=== PATIENT | male | born 1965 | race Caucasian/White ===

== ENCOUNTER 2023-10-28 08:20 | Day surgery (SDC) | payer OTHER, SELFPAY ==
--- NOTE | 2023-10-17 10:34 | HPS.HSE ---
Family Physician
-
Family Physician: NO INTERVIEW UNKNOWN
Chief Complaint
-
Atrial flutter.
History of Present Illness
The patient is a 58 year old male presenting today for atrial flutter. The patient reports a history of heart racing, especially worse at night, secondary to this diagnosis. He previously underwent a cardioversion in August 2023 for his
arrhythmia. Thankfully, since his cardioversion, his heart racing has dissipated and he has been remaining in normal sinus rhythm. He is on pharmacological therapy with Metoprolol Succinate. He has been compliant with Xarelto for oral
anticoagulation. He will undergo an atrial flutter ablation for further arrhythmia management. He denies any current complaints today such as chest pain, shortness of breath at rest, nausea, vomiting, diarrhea, lightheadedness, dizziness, cough,
sore throat, or fever.
Medical History
Past Medical History
Past Medical History: Reports Other
Additional Past Medical History:
1. Atrial flutter, status post cardioversion; pharmacological therapy with Metoprolol Succinate, oral anticoagulation with Xarelto.
2. Hyperlipidemia.
3. Coronary artery disease, status post CABG x3 2003.
4. First degree AV block.
5. Obstructive sleep apnea, no current device.
6. Chronic kidney disease stage 3.
7. Non-insulin dependent diabetes with neuropathy.
8. Remote GERD.
9. Chronic nausea.
10. Nephrolithiasis.
11. Rare migraines.
12. Vertigo.
13. Peroneal nerve paralysis with ambulatory dysfunction.
14. Lumbar herniated discs.
15. Osteoarthritis.
16. Probable BPH.
17. Anxiety.
18. Depression.
19. Obesity, BMI 30.8.
20. Remote tobacco abuse.
21. Cannibis dependence.
Past Surgical History: Reports Other
Additional Past Surgical History:
1. Cardioversion.
2. CABG x3.
3. [place] teeth extraction.
4. Colonoscopy x2.
Social History
Tobacco: Former Smoker (He is a former 1-2 pack per day cigarette smoker who quit tobacco altogether in 1991. )
Alcohol: Other (Rare. )
Drug: Marijuana (Daily for pain. )
Personal:
Living: Other (He lives with his in a single family home. )
Family History
Family History: Not pertinent
Allergies / Home Medications
Allergy/Medication List:
Home medications:
1. Acetaminophen 1000 mg p.o. every 6 hours as needed.
2. Alprazolam 0.5 mg p.o. 1-2 times a day.
3. Atorvastatin 80 mg p.o. daily.
4. Bupropion HCl 150 mg p.o. twice a day.
5. Fenofibrate 145 mg p.o. at bedtime.
6. Flaxseed 1000 mg p.o. every evening.
7. Glimepiride 4 mg p.o. twice a day.
8. Marijuana 1-2 units p.o. daily as needed.
9. Metformin 1000 mg p.o. twice a day.
10. Metoprolol Succinate 25 mg p.o. daily.
11. Naproxen sodium 440 mg p.o. daily as needed.
12. Fish oil 1000 mg p.o. daily.
13. Pioglitazone 15 mg p.o. every evening.
14. Xarelto 20 mg p.o. every evening.
15. Jardiance 25 mg p.o. daily.
Allergies: Darvocet and Darvon. [place] Peanuts.
Review of Systems
-
A 12 point ROS was completed and negative except as noted: Yes
Physical Exam
Vital Signs
Blood pressure 101/57. Heart rate 59. Respirations 18. Pulse ox 97% on room air.
Height 5 feet, 6 inches. Weight 86.6 kg. BMI 30.8.
Physical Exam
General: Well Developed, Well Nourished and No Apparent Distress
HEENT: NormoCephalic, Moist mucous membranes, Atraumatic and PERRLA
Respiratory: Clear
Cardiac: Regular Rhythm
GI: Soft, Non Tender and Non Distended
Musculoskeletal: Other (Braces noted on bilateral lower extremities. Patient walks unassisted with ataxic gait. )
Skin: Warm and Dry
Neuro: AO x 3 and Nonfocal/grossly intact
Laboratory Results
-
DIAGNOSTIC STUDIES as of 10/17/2023: White blood cell count 5.8. Hemoglobin 13.1. Platelet count 289,000. PT 16.3. INR 1.30. Sodium 136. Potassium 4.6. BUN 33. Creatinine 1.6. Glucose 123. Calcium 10.4. Magnesium 2.2. AST 32. ALT 26. Albumin 4.9.
Blood type O positive.
EKG 10/17/2023: Sinus bradycardia with first degree AV block. Nonspecific T wave abnormality.
Impression/Plan
-
IMPRESSION/PLAN:
1. Atrial flutter: The patient is in need of an atrial flutter ablation with Dr. Ryan Jackson on 10/28/2023. The benefits and risks of the procedure have been explained to the patient. The patient understands these risks and wishes to proceed.
He will continue his home Xarelto up until the night prior to his ablation unless he is otherwise specified by his surgeon. He will hold all of his medications the morning of his procedure.
[2023-10-17 13:36] VITALS: BMI 30.8
[2023-10-17 14:15] LABS: % Eosinophils 1.4 % (0-6); % Immature Granulocytes 0.3 % (0-0.5); % Lymphocytes 25.9 % (20.5-51.1); % Monocytes 7.1 % (1.7-9.3); % Neutrophils 64.3 % (42.2-75.2); Absolute Basophils 0.1 10^3/uL (0-0.2); Absolute Eosinophils 0.1 10^3/uL (0-0.7); Absolute Lymphocytes 1.5 10^3/uL (1.2-3.4); Absolute Monocytes 0.4 10^3/uL (0.1-0.6); Absolute Neutrophils 3.7 10^3/uL (1.4-6.5); Hematocrit 39.3 % (39.0-52.0); Hemoglobin 13.1 g/dL (13.0-18.0); Mean Corp Hgb Conc. 33.3 g/dL (33.0-37.0); Mean Corpuscular Hgb 29.5 pg (27.0-31.0); Mean Corpuscular Volume 88.5 fL (80.0-94.0); Mean Platelet Volume 10.6 fL (7.4-10.4); Nucleated Red Blood Cells % 0 % (-); Platelet Count 289 10^3/uL (130-400); Red Blood Cell Count 4.44 10^6/uL (4.70-6.10); Red Cell Dist. Width 15.3 % (11.5-14.5); White Blood Cell Count 5.8 10^3/uL (4.8-10.8)
[2023-10-17 14:28] LABS: PT 16.3 Sec (11.4-14.6)
[2023-10-17 15:09] LABS: ALT (SGPT) 26 U/L (0-50); AST (SGOT) 32 U/L (17-59); Albumin 4.9 g/dl (3.5-5.0); Alkaline Phosphatase 60 U/L (38-126); Blood Urea Nitrogen 33 mg/dl (9-20); Calcium 10.4 mg/dl (8.4-10.2); Carbon Dioxide 25 mmol/L (22-30); Chloride 103 mmol/L (98-107); Estimated Creatinine Clearance 51 ml/min; Glucose 123 mg/dl (70-99); Magnesium 2.2 mg/dl (1.6-2.3); Potassium 4.6 mmol/L (3.5-5.1); Sodium 136 mmol/L (135-145); Total Bilirubin 0.4 mg/dl (0.2-1.3); Total Protein 7.1 g/dl (6.3-8.2); eGFR 49.02
[2023-10-28] VITALS (17 sets, daily range): BP systolic 112–169; BP diastolic 69–100; BMI 28.9
--- NOTE | 2023-10-28 12:52 | ITS.CL.ABL ---
Type Caster - Ablation
Ablation
Procedure Report:
ELECTROPHYSIOLOGIC STUDY AND POSSIBLE ABLATION
Date of Procedure: October 28, 2023
Primary Care Provider: Dr. Morteza Banks
Primary ore dryer: Dr. Jorgito Herring
INDICATION:
1. Atrial tachyarrhythmia, symptomatic
HISTORY:
Please refer to office history and physical exam.
He has a history of coronary artery disease with prior coronary artery bypass grafting surgery in 2003. He is diabetic.
He was recently diagnosed with atrial flutter prompting the initiation of oral anticoagulation as well as rate control with Toprol. It is noted that a recent echocardiogram shows low normal LVEF with no significant valvular disease.
My review of EKG dated August 22, 2023 finds atrial flutter (appears to be typical counterclockwise right atrial flutter) with mildly rapid rate, ventricular rate of 101 bpm.
He underwent cardioversion and feels he has been maintaining sinus rhythm since that time.
He notes that with atrial flutter he felt uncomfortable heart racing sensation and pounding particularly at night.
PROCEDURE:
Ultrasound Guidance performed by me was utilized for femoral venous Vascular Access b/l. Vascular US demonstrated the typical vascular anatomy.
A decapolar mapping catheter was placed into the CS for LA mapping/recording but could only be advanced into the very proximal coronary sinus and will not remain there so the decapolar catheter was then moved to the interatrial septum. A mapping
catheter was positioned and a 3-D mapping system ([employer]) was used to create three-dimensional electroanatomical map of the right atrium and the cavotricuspid isthmus.. Mapping and ablation catheter was positioned and RV recordings were obtained and
RV pacing was performed. Programmed electrical stimulation including burst atrial pacing and delivery of atrial decremental extrastimuli failed to induce any sustained arrhythmias. Of note programmed electrical stimulation demonstrates the
presence of dual AV shahid physiology but no inducible supraventricular tachycardia based on this mechanism. Sustained atrial arrhythmia could not be induced and CTI ablation was performed based on CTI flutter being the most likely diagnosis.
After determination of a target arrhythmia, a deflectable tip mapping/ablation catheter (4 mm tip irrigated contact sensing) was advanced to the inferior aspect of the tricuspid annulus (isthmus of atrial tissue between the annulus and inferior vena
caval orifice). RF was used to try to interrupt a critical portion of the flutter circuit. RF applications were given from the 5 to 7 o'clock positions along the tricuspid annulus during [ ] sinus rhythm / atrial flutter / while pacing from the
lateral medial right atrium. The catheter was initially placed on the ventricular aspect of the annulus, where energy delivery was begun. A series of discrete applications were made along a line between the annulus and inferior vena caval orifice.
At the conclusion of RF delivery, pacing from both the lateral as well as medial aspect of the tricuspid annulus revealed a discontinuity in the wavefront of atrial activation along the tricuspid annulus-IVC isthmus; sites medial to 6 o'clock were
activated from the medial aspect, and those lateral to 6 o'clock were activated from the lateral aspect. This suggests that the flutter circuit utilizing this isthmus as a critical portion of its propagation had been interrupted.
COMPLICATIONS: None
SUMMARY:
Empiric ablation of the cavotricuspid isthmus due to noninducibility of the clinical arrhythmia. Inability to induce the clinical arrhythmia raises some doubt regarding ultimate effectiveness of today's ablation.
- EP study with coronary sinus catheter
- 3-dimensional electroanatomical mapping ([employer])
- Mapping and ablation of supraventricular tachycardia
RECOMMENDATIONS:
Continue oral anticoagulation
CHADSVASc = 3 (Age, DM, Vasc Dz). If there will be consideration for discontinuation of oral anticoagulation would be safest to have an implanted loop recorder to assess for any recurrent atrial tachyarrhythmias
Copy to: Dr Jorgito Herring
--- NOTE | 2023-10-28 17:05 | W.PN.UPDATE ---
Update Note
Progress Note Update
Pt seen post Aflutter ablation. Right groin with FOE, no ht/bleeding, non tender. OOB ambulating, urinating without difficulty. Post EKG NSR 70s, inc RBBB as before, no acute changes. Resume Xarelto tonight at usual time. Followup with Dr. Herring
as scheduled. Home today if groin site/tele remain stable.
== END 2023-10-28 16:53 | disposition home or self-care (01) ==
LOC: CATH 08:20
PROVIDERS: ATTENDING PHYSICIAN Internal Medicine Cardiovascular Disease; FAMILY PHYSICIAN Internal Medicine; OTHER PHYSICIAN Internal Medicine Cardiovascular Disease
DX: I48.92 Unspecified atrial flutter (principal); E11.22 Type 2 diabetes mellitus with diabetic chronic kidney disease; E11.40 Type 2 diabetes mellitus with diabetic neuropathy, unspecified; E78.5 Hyperlipidemia, unspecified; E66.9 Obesity, unspecified; F32.A Depression, unspecified; F41.9 Anxiety disorder, unspecified; G47.33 Obstructive sleep apnea (adult) (pediatric); I25.10 Atherosclerotic heart disease of native coronary artery without angina pectoris; I45.10 Unspecified right bundle-branch block; I47.19 Other supraventricular tachycardia; I48.91 Unspecified atrial fibrillation; Z95.1 Presence of aortocoronary bypass graft; I44.0 Atrioventricular block, first degree; K21.9 Gastro-esophageal reflux disease without esophagitis; Z87.442 Personal history of urinary calculi; G43.909 Migraine, unspecified, not intractable, without status migrainosus; R42 Dizziness and giddiness; G57.30 Lesion of lateral popliteal nerve, unspecified lower limb; M19.90 Unspecified osteoarthritis, unspecified site; M51.26 Other intervertebral disc displacement, lumbar region; Z87.891 Personal history of nicotine dependence; Z79.84 Long term (current) use of oral hypoglycemic drugs; Z79.899 Other long term (current) drug therapy; Z79.01 Long term (current) use of anticoagulants; N18.30 Chronic kidney disease, stage 3 unspecified
CPT/HCPCS: C1894; C1730; C2630; C1892; C1893; 36415; 76937; 80053; 83735; 85025; 85610; 86850; 86900; 86901; 93005; 93653